=== PATIENT | female | born 1995 | race Caucasian/White ===

== ENCOUNTER 2018-06-06 18:52 | Emergency (ER) | payer OTHER ==
[2018-06-06] MEDS ORDERED: Lidocaine 2% VISCOUS* 15 ML UDC PO ONE (19:12)
[2018-06-06] MEDS ORDERED: Al Hydrox/Mg Hydrox/Simet LIQ* 30 ML UDC PO ONE (19:12)
--- NOTE | 2018-06-06 19:47 | ED ---
GI/ HPI - HPI Summary HPI Summary: 22-year-old female presents with throat irritation since yesterday. States she tried to swallow a pill Valtrex and it got caught in her throat. She states she eventually got down by drinking fluids. She denies any nausea or vomiting. She states that today she tried to eat something and felt like her throat was swollen. Denies any sinus congestion. No cough. No recent illness. Never had this happen before. - History of Current Complaint Chief Complaint: EDThroatPain Time Seen by Provider: 06/06/18 19:07 Stated Complaint: SORE THROAT Pain Intensity: 3 - Allergy/Home Medications Allergies/Adverse Reactions: Allergies Allergy/AdvReac Type Severity Reaction Status Date / Time No Known Allergies Allergy Verified 06/06/18 19:00 PMH/Surg Hx/FS Hx/Imm Hx Infectious Disease History: No Infectious Disease History: Denies: Traveled Outside the [place] in Last 30 Days - Social History Alcohol Use: None Substance Use Type: Reports: None Smoking Status (MU): Never Smoked Tobacco Review of Systems Negative: Fever Positive: Sore Throat Negative: Chest Pain Negative: Shortness Of Breath All Other Systems Reviewed And Are Negative: Yes Physical Exam Triage Information Reviewed: Yes Vital Signs On Initial Exam: Initial Vitals Temp Pulse Resp BP Pulse Ox 99.1 F 101 16 122/80 100 06/06/18 18:58 06/06/18 18:58 06/06/18 18:58 06/06/18 18:58 06/06/18 18:58 Vital Signs Reviewed: Yes Appearance: Positive: Well-Appearing Skin: Positive: Warm, Dry Head/Face: Positive: Normal Head/Face Inspection Eyes: Positive: Normal, EOMI, MIKEL, Conjunctiva Clear ENT: Positive: Normal ENT inspection, Pharynx normal, TMs normal Respiratory/Lung Sounds: Positive: Clear to Auscultation, Breath Sounds Present Cardiovascular: Positive: Normal, RRR Abdomen Description: Positive: Nontender, Soft Bowel Sounds: Positive: Present Musculoskeletal: Positive: Normal Neurological: Positive: Normal Psychiatric: Positive: Normal Diagnostics - Vital Signs Vital Signs Temp Pulse Resp BP Pulse Ox 06/06/18 18:58 99.1 F 101 16 122/80 100 - Laboratory Lab Statement: Any lab studies that have been ordered have been reviewed, and results considered in the medical decision making process. Re-Evaluation - Re-Evaluation First Eval Re-Evaluation Time: 19:47 Change: Improved Comment: no pain any more GIGU Course/Dx - Course Course Of Treatment: 22-year-old female presents with throat irritation since yesterday. States she tried to swallow a pill Valtrex and it got caught in her throat. She states she eventually got down by drinking fluids. She denies any nausea or vomiting. She states that today she tried to eat something and felt like her throat was swollen. Denies any sinus congestion. No cough. No recent illness. Never had this happen before. On exam pharynx normal. Lungs clear to auscultation. gave gi cocktail and feeling better. patient decline strept test. Patient is concerned that valtrex may still be stuck to side of her esophagus. No signs of obstruction on exam. We will put a short course of omeprazole to protect the esophagus. Patient understands agrees with plan. - Diagnoses Differential Diagnoses - Female: Esophagitis/Gastritis, Other - strept Provider Diagnoses: Throat irritation Discharge - Sign-Out/Discharge Documenting (check all that apply): Patient Departure - Discharge Plan Condition: Good Disposition: HOME Prescriptions: Omeprazole CAP* [Prilosec CAP* 20 MG] 20 mg PO DAILY #5 cap.dr Referrals: No Primary Care Phys,NOPCP [Primary Care Provider] - Additional Instructions: take omeprazole once a day for 5 days Drink fluids as tolerated follow up with gi if no improvement Return to ED if develop any new or worsening symptoms - Billing Disposition and Condition Condition: GOOD Disposition: Home
[2018-06-06 19:55] VITALS: BP 111/75
== END 2018-06-06 19:54 | disposition home or self-care (01) ==
LOC: ED 18:52
DX: R06.02 Shortness of breath (principal); J02.9 Acute pharyngitis, unspecified
CPT/HCPCS: 99282; A9270-GY